=== PATIENT | female | born 1985 | race Caucasian/White ===

== ENCOUNTER 2023-12-19 23:15 | Emergency (ER) | payer OTHER, SELFPAY ==
[2023-12-19 23:15] VITALS: BMI 24.7
[2023-12-19 23:20] VITALS: BP 142/75
[2023-12-19 23:44] VITALS: BP 128/84
--- NOTE | 2023-12-19 23:59 | ED.GENMED ---
History of Present Illness
<MAE Machado - Last Filed: 12/21/23 00:48>
General
Chief Complaint: Fever
Source: patient
Exam Limitations: none
Time Seen by Provider: 12/19/23 23:36
Travel History
Have you had any contact with someone who has COVID-19?: No
Do you have any symptoms of coronavirus? Fever > 100 degrees, chills, cough, shortness of breath, sore throat, loss of taste or smell, muscle aches, or headache?: No
History of Present Illness
History of Present Illness:
This is a 38 year old female that comes in with c/o fever and abd pain. States that on Saturday she started with lower back pain and abd pain. States that on Saturday night she had a fever of 100. Saturday the fever continued and she kept taking Advil.
States that on Saturday she went to see the PCP and she told her that she was having abd pain but she was not listening. States that she tested her for COVID, Influenza an RSV. States that she was told that it most likely was viral and went home on
Advil. States that Saturday her temp was 101 and Saturday all her testing came back and it was negative. States that she went to this morning and she was told that she has a kidney infection. States that her abd pain is worse and that they again
had tested her for COVID, Influenza, strep and all was negative. States that they gave her a shot in her buttocks and gave her Bactrim. States that she has flank pain and that it feels like someone is using a knife in her Urethra. States that she
had a left over Tramadol which she took and this did not help. States that she has had fever with chills, nausea, diarrhea, headache, urinary frequency and burning. Denies any chest pain, SOB, vomiting, dizziness.
Past History
<MAE Machado - Last Filed: 12/21/23 00:48>
Past History
ED Past Medical History: Arrthythmia (tachycardia), GERD, Psychiatric (Anxiety, Depression) and Other (Endometriosis, rectal prolapse, rectocele, Gastroparesis, UTI, )
ED Past Surgical History: Appendectomy, Bowel resection (Colon resection for rectal prolapse June 2021, Colectomy) and Other (Laparoscopy, Colostomy to Ileostomy with reversal, )
Social History
Tobacco: Non-smoker
Alcohol: Occasional
Drug: None
Personal:
Living: with family
Employment: Employed (Patient is a professor at [employer])
Review of Systems
<MAE Machado - Last Filed: 12/21/23 00:48>
Review of Systems
All Other Systems: ROS reviewed and negative except as documented in HPI and ROS
Constitutional: Reports fever and chills
EENT: Reports no symptoms
Respiratory: Reports no symptoms; Denies cough or trouble breathing
Cardiac: Denies chest pain
ABD/GI: Reports abdominal pain, nausea and diarrhea; Denies vomiting
: Reports dysuria and frequency
Musculoskeletal: Reports no symptoms
Skin: Reports no symptoms
Neurological: Reports headache; Denies dizzy
Psychiatric: Reports no symptoms
Phy Exam
<MAE Machado - Last Filed: 12/21/23 00:48>
General Physical Exam
General Presentation: mild distress
General age: appears stated age
General Skin: warm, dry and flushed
General Habitus: normal
General Mental: alert
General Hydration: appears well hydrated
ENT Exam
ENT Exam: TM's normal, pharynx normal and neck supple
Eye Exam
Eye Exam: EOMI
Cardiovascular Exam
Cardiovascular Exam: regular rate/rhythm, no edema, no murmur and normal peripheral pulses
Pulmonary Exam
Pulmonary Exam: lungs clear, no respiratory distress, no rales, chest non tender, no crackles, no rhonchi, no wheezing and no cough
Gastrointestinal Exam
Gastrointestinal Exam: normal bowel sounds, soft, no organomegaly, no pulsatile mass, non distended and tender (Lower abd tenderness with palpation)
Musculoskeletal Exam
Musculoskeletal Exam: full ROM and no edema
Skin Exam
Skin Exam: normal color, warm/dry, no rash and no petechia
Psychiatric Exam
Psychiatric Exam: normal mood/affect
Course
<MAE Machado - Last Filed: 12/21/23 00:48>
Orders/Labs/Results
Orders:
Orders
12/19/23 23:55
0.9% Sodium Chloride 1000 ml [Nss] 1,000 ml IV BOLUS
Iohexol [Omnipaque] See Protocol PO NOW STA
12/19/23 23:56
Complete Blood Count/With Diff Urgent
Comprehensive Metabolic Panel Urgent
HCG, Serum Qualitative Screen Urgent
Test Result ONCE
12/19/23 23:57
Urinalysis Reflex To Culture Urgent
Date Specimen was Collected: 12/19/23
Time Specimen was Collected: 23:58
Acetaminophen 1000MG/100Ml [Ofirmev] 1,000 mg in 100 ml IV ONCE
Acetaminophen IV Indication:: ED Narcotic Naive Pt-ONCE
12/20/23 01:27
Morphine Sulfate 2 mg IV NOW STA
12/20/23 02:30
CT Abd/pel W Iv And Oral Contr Urgent
Comment: colectomy, Hist of Colostomy/Ileostomy with revers
Reason For Exam: Lower abd pain
12/20/23 02:50
Piperacillin/Tazo 3.375 Gram [Zosyn] 3.375 gram in 50 ml IV NOW
12/20/23 03:03
Morphine Sulfate 4 mg IV NOW STA
12/20/23 04:11
Morphine Sulfate 4 mg IV NOW STA
12/20/23 04:58
0.9% Sodium Chloride 500 ml [Nss] 500 ml IV BOLUS
12/20/23 05:19
Lactic Acid Stat
Blood Culture Q30M
[facility] Source: Blood/Venous
Specimen Description:
12/20/23 05:48
Blood Culture Q30M
[facility] Source: Blood/Venous
Specimen Description:
12/20/23 07:28
Morphine Sulfate 4 mg IV Q4HPRN PRN
12/20/23 08:00
Dextrose 5%/0.9%Sodchl 1000 ml [D5/0.9% Sodium Chloride] 1,000 ml Potassium Chloride [KCl] 20 meq IV 120 mls/hr
Piperacillin/Tazo 4.5 Gram [Zosyn] 4.5 gram in 100 ml IV Q6H
12/20/23 09:44
Morphine Sulfate 4 mg .ROUTE .STK-MED ONE
12/20/23 09:45
Morphine Sulfate 4 mg IV NOW STA
12/20/23 11:52
Morphine Sulfate 4 mg IV NOW STA
Abnormal Lab Results
12/20/23 12/20/23
00:06 05:19
WBC 15.1 H 10^3/uL
(4.8-10.8)
RBC 3.93 L 10^6/uL
(4.20-5.40)
Hgb 11.7 L g/dL
(12.0-16.0)
Hct 33.2 L %
(37.0-47.0)
Plt Count 447 H 10^3/uL
(130-400)
Abs Immat Gran (auto) 0.2 H 10^3/uL
(0-0.05)
Absolute Neuts (auto) 11.1 H 10^3/uL
(1.4-6.5)
Absolute Monos (auto) 1.3 H 10^3/uL
(0.1-0.6)
Immature Gran % 1.5 H %
(0-0.5)
Lymphocytes % 15.4 L %
(20.5-51.1)
Lactic Acid < 0.5 L mmol/L
(0.7-2.0)
12/20/23 00:06
12/20/23 00:06
Leukocytosis, Plt slightly elevated. HCG negative, Urine negative for infection or blood.
Vital Signs
Initial and Last Documented VS:
Initial Vital Signs
Temp Pulse Resp BP Pulse Ox
100.6 F H 109 20 142/75 100
12/19/23 23:20 12/19/23 23:20 12/19/23 23:20 12/19/23 23:20 12/19/23 23:20
Last Documented Vital Signs
Temp Pulse Resp BP Pulse Ox
98.4 F 114 14 119/77 99
12/20/23 06:12 12/20/23 11:57 12/20/23 11:57 12/20/23 11:57 12/20/23 12:00
<Aleksandra Andrews MD - Last Filed: 12/20/23 05:04>
Orders/Labs/Results
Orders:
Orders
12/19/23 23:55
0.9% Sodium Chloride 1000 ml [Nss] 1,000 ml IV BOLUS
Iohexol [Omnipaque] See Protocol PO NOW STA
12/19/23 23:56
Complete Blood Count/With Diff Urgent
Comprehensive Metabolic Panel Urgent
HCG, Serum Qualitative Screen Urgent
Test Result ONCE
12/19/23 23:57
Urinalysis Reflex To Culture Urgent
Date Specimen was Collected: 12/19/23
Time Specimen was Collected: 23:58
Acetaminophen 1000MG/100Ml [Ofirmev] 1,000 mg in 100 ml IV ONCE
Acetaminophen IV Indication:: ED Narcotic Naive Pt-ONCE
12/20/23 01:27
Morphine Sulfate 2 mg IV NOW STA
12/20/23 02:30
CT Abd/pel W Iv And Oral Contr Urgent
Comment: colectomy, Hist of Colostomy/Ileostomy with revers
Reason For Exam: Lower abd pain
12/20/23 02:50
Piperacillin/Tazo 3.375 Gram [Zosyn] 3.375 gram in 50 ml IV NOW
12/20/23 03:03
Morphine Sulfate 4 mg IV NOW STA
12/20/23 04:11
Morphine Sulfate 4 mg IV NOW STA
12/20/23 04:58
0.9% Sodium Chloride 500 ml [Nss] 500 ml IV BOLUS
12/20/23 05:19
Lactic Acid Stat
Blood Culture Q30M
[facility] Source: Blood/Venous
Specimen Description:
12/20/23 05:48
Blood Culture Q30M
[facility] Source: Blood/Venous
Specimen Description:
12/20/23 07:28
Morphine Sulfate 4 mg IV Q4HPRN PRN
12/20/23 08:00
Dextrose 5%/0.9%Sodchl 1000 ml [D5/0.9% Sodium Chloride] 1,000 ml Potassium Chloride [KCl] 20 meq IV 120 mls/hr
Piperacillin/Tazo 4.5 Gram [Zosyn] 4.5 gram in 100 ml IV Q6H
12/20/23 09:44
Morphine Sulfate 4 mg .ROUTE .STK-MED ONE
12/20/23 09:45
Morphine Sulfate 4 mg IV NOW STA
12/20/23 11:52
Morphine Sulfate 4 mg IV NOW STA
Abnormal Lab Results
12/20/23 12/20/23
00:06 05:19
WBC 15.1 H 10^3/uL
(4.8-10.8)
RBC 3.93 L 10^6/uL
(4.20-5.40)
Hgb 11.7 L g/dL
(12.0-16.0)
Hct 33.2 L %
(37.0-47.0)
Plt Count 447 H 10^3/uL
(130-400)
Abs Immat Gran (auto) 0.2 H 10^3/uL
(0-0.05)
Absolute Neuts (auto) 11.1 H 10^3/uL
(1.4-6.5)
Absolute Monos (auto) 1.3 H 10^3/uL
(0.1-0.6)
Immature Gran % 1.5 H %
(0-0.5)
Lymphocytes % 15.4 L %
(20.5-51.1)
Lactic Acid < 0.5 L mmol/L
(0.7-2.0)
12/20/23 00:06
12/20/23 00:06
Vital Signs
Initial and Last Documented VS:
Initial Vital Signs
Temp Pulse Resp BP Pulse Ox
100.6 F H 109 20 142/75 100
12/19/23 23:20 12/19/23 23:20 12/19/23 23:20 12/19/23 23:20 12/19/23 23:20
Last Documented Vital Signs
Temp Pulse Resp BP Pulse Ox
98.4 F 114 14 119/77 99
12/20/23 06:12 12/20/23 11:57 12/20/23 11:57 12/20/23 11:57 12/20/23 12:00
<MAE Machado - Last Filed: 12/21/23 00:48>
MDM/Problems Addressed
Differential Diagnosis Includes:
UTI, Renal calculus, Pyelonephritis
MDM/Problems Addressed:
This is a 38 year old female that comes in with c/o abd pain and fever. States that this started on Saturday night. Patient as told today that she has a kidney infection and given IM injection and placed on Bactrim. States that her pain is worse
tonight.
Will get labs CT abd/pelvis, IV fluids and medicate for pain.
Back into see patient. Explained that the CT shows that there may be a leak at her anastomosis or an abscess. Patient will need tranfer to [facility] where her surgery was done in August 2023. Called placed to Dr. Costa and awaiting call back.
Chronic conditions affecting care: Previous abdomnial surgery
Acute Exacerbation and/or Progression of Chronic Illness: Previous abdomnial surgery
<MAE Machado - Last Filed: 12/21/23 00:48>
*Radiology
Radiology exam reviewed: radiology read reviewed (CT night hawk- Interval right lower quadrant ostomy reversal. Surgical anastomosis noted in the lower pelvis at the level of the rectum. The left margin of the surgical anastomosis there is a likely
extraluminal fluid collection measuring 2X 3.5cm with several small foci of gas. This could reflect), all reviewed NAD by ED Provider (CT cont- reflect perianastomotic leak and/or abscess formation. Intraluminal contrast is noted at the level of the
descending colon but not within the distal sigmoid colon and rectum or anus. Consider repeat CT to allow further transit time of contast and better delineation of this region. Consider ) and other (CT cont- Consider surgical consultation. No
appendicitis. No evidence of small bowel obstruction. No evidence of hydroureteronephrosis or obstructing stones. No AAA)
*Pulse Oximetry
Patient hypoxic: no
*EKG
Interpreted by ED Provider?: NA
Rate: EKG- N/A
*Critical Care Note
Total Time (30-74mins, 75-104mins- exclusive of procedures): Not Applicable
ED Attending Note
<MAE Machado - Last Filed: 12/21/23 00:48>
-
Portions of this chart may have been created with voice recognition software.� Occasional wrong word or��sound alike� substitutions may have occurred due to the inherent limitations of voice recognition software.
<Aleksandra Andrews MD - Last Filed: 12/20/23 05:04>
ED Attending Note
Patient seen and examined by attending physician: Yes
I performed the substantive portion of visit, reviewed & personally made and approve the management plan that is documented in note by myself or ROMAN.: Yes
ED Attending Note:
89am Case d/w Dr Ronda Kaiser and regulatory compliance coordinator, away of hx,p hys, prior surgery, ct report, labs, etc. Agrees with abx, pain meds, and plan to transfer...accepts pt on transfer. At this time, no bed available there but coordinator expects
bed this AM and we will await their call for availability.
38 yr old female with c/o fever since Saturday, dx'd with UTI and on bactrim, presentes with pain in abd...on exam,pt overall well appearing, awake, alert, pleasant. Abd is soft, mod rlq ttp, no r/g. Will add lactic and blood cultures to w/u,close
observation while awaiting tx.
Discharge Plan
Departure
Patient Disposition: Acute Care Hospital
Date of Disposition: 12/20/23
Time of Disposition: 03:29
Patient with high blood pressure during this ER visit?: No
Condition: Good
Covid-19: Not Applicable
Discharge Problem:
Anastomotic leak of intestine, Anastomotic leak vs Abscess
Prescriptions:
No Action
trazodone 50 MG tablet
100 mg PO HS
sertraline 100 MG tablet
200 mg PO HS
acetaminophen 325 MG tablet
650 mg PO Q4HPRN PRN (Reason: mild pain) 0RF
clonazepam 0.5 MG tablet
0.5 mg PO HS
plecanatide [Trulance] 3 MG tablet
3 mg PO DAILYPRN PRN (Reason: constipation)
Patient Comments:
takes every other day with dulcolax for bowel regimen
docusate sodium 100 MG capsule
200 mg PO HS
baclofen 10 MG tablet
10 mg PO TID PRN (Reason: spasm)
bupropion HCl 300 MG tablet extended release 24 hr
300 mg PO DAILY
oxycodone 5 MG tablet
5 mg PO Q4HPRN PRN (Reason: moderate pain) Qty: 15 0RF
ciprofloxacin HCl [Cipro] 500 mg tablet
500 mg PO BID Qty: 14 0RF
phenazopyridine [Pyridium] 200 mg tablet
200 mg PO TID PRN (Reason: pain) Qty: 10 0RF
gabapentin 100 mg capsule
100 mg PO TID PRN (Reason: pain) Qty: 14 0RF
pantoprazole 40 MG tablet,delayed release (DR/EC)
40 mg PO DAILY
multivitamin 1 EACH tablet
1 ea PO DAILY
Referrals:
Ingrid Long MD [Family Provider] -
Hospital Transfer
Other hospital: [facility]
I certify that the patient requires transfer: Yes
Discussed case with accepting physician: Dr. Ronda Kaiser
Reason for transfer: higher level of care, specialties available and continuity of care PCP
Interventions
Interventions:
*Risk Screen - Suicide Last Done: 12/20/23 07:30
*General Assessment Last Done: 12/20/23 07:30
*Neglect/Abuse Screening Last Done: 12/20/23 07:30
ED- Fall Risk Assessment Last Done: 12/20/23 07:30
*ED COVID-19 Vaccine History Last Done: 12/20/23 07:30
*Nursing Disposition Last Done: 12/20/23 12:13
ED- Neurological Assessment Last Done: 12/20/23 00:10
ED-Skin Assessment Last Done: 12/20/23 00:10
Discharge Date and Time
Discharge Date/Time: 12/20/23 12:16
[2023-12-20] VITALS (11 sets, daily range): BP systolic 111–122; BP diastolic 72–82
[2023-12-20] MEDS: NSS 1000 IV (00:10)
[2023-12-20] MEDS: OMNIPAQUE 50 ML PO (00:17)
[2023-12-20] MEDS: OFIRMEV 100 IV (00:24)
[2023-12-20 00:38] LABS: % Basophils 0.5 % (0-2); % Eosinophils 1.1 % (0-6); % Immature Granulocytes 1.5 % (0-0.5); % Lymphocytes 15.4 % (20.5-51.1); % Monocytes 8.3 % (1.7-9.3); % Neutrophils 73.2 % (42.2-75.2); Absolute Basophils 0.1 10^3/uL (0-0.2); Absolute Eosinophils 0.2 10^3/uL (0-0.7); Absolute Immature Granulocytes 0.2 10^3/uL (0-0.05); Absolute Lymphocytes 2.3 10^3/uL (1.2-3.4); Absolute Monocytes 1.3 10^3/uL (0.1-0.6); Absolute Neutrophils 11.1 10^3/uL (1.4-6.5); Hematocrit 33.2 % (37.0-47.0); Hemoglobin 11.7 g/dL (12.0-16.0); Mean Corp Hgb Conc. 35.2 g/dL (33.0-37.0); Mean Corpuscular Hgb 29.8 pg (27.0-31.0); Mean Corpuscular Volume 84.5 fL (81.0-99.0); Mean Platelet Volume 8.5 fL (7.4-10.4); Nucleated Red Blood Cells % 0 %; Platelet Count 447 10^3/uL (130-400); Red Blood Cell Count 3.93 10^6/uL (4.20-5.40); Red Cell Dist. Width 11.7 % (11.5-14.5); Urine Albumin Negative (Neg - Trace); Urine Bilirubin Negative (Negative); Urine Character Clear (Clear); Urine Color Yellow; Urine Glucose Negative (Negative); Urine Ketone Negative (Negative); Urine Leukocyte Negative (Negative); Urine Nitrite Negative (Negative); Urine Occult Blood Negative (Negative); Urine Urobilinogen Negative (Neg - 1+); White Blood Cell Count 15.1 10^3/uL (4.8-10.8)
[2023-12-20 00:44] LABS: HCG, Serum Qualitative Screen Negative
[2023-12-20 01:07] LABS: ALT (SGPT) 16 U/L (0-35); AST (SGOT) 20 U/L (14-36); Albumin 3.7 g/dl (3.5-5.0); Alkaline Phosphatase 96 U/L (38-126); Blood Urea Nitrogen 8 mg/dl (7-17); Calcium 8.7 mg/dl (8.4-10.2); Carbon Dioxide 26 mmol/L (22-30); Chloride 102 mmol/L (98-107); Estimated Creatinine Clearance 100 ml/min; Glucose 86 mg/dl (70-99); Potassium 4.2 mmol/L (3.5-5.1); Sodium 136 mmol/L (135-145); Total Bilirubin 0.3 mg/dl (0.2-1.3); Total Protein 6.8 g/dl (6.3-8.2); eGFR > 60.00
[2023-12-20] MEDS: MORPHINE SULFATE 2 MG IV (01:30)
[2023-12-20] MEDS: MORPHINE SULFATE 4 MG IV ×5 (03:11→11:53)
[2023-12-20] MEDS: ZOSYN 50 IV (03:18)
[2023-12-20] MEDS: NSS 500 IV (05:26)
[2023-12-20 06:05] LABS: Lactic Acid < 0.5 mmol/L (0.7-2.0)
--- NOTE | 2023-12-20 07:34 | ED.ADDNOTE ---
ED Addendum
ED Addendum
ED Addendum Note:
Pt re-evaluated. She is having increased pain as her last dose of morphine is wearing off. No nausea or vomiting.
Mild tachycardia @ 100-110, normal bp
Facial flushing
Abd: tender rlq.
IVF D5NS at 1.5 maintenance
Zosyn ordered q6
Morphine 4mg PRN q 4
Fellow from [facility] called to check pt status. They are hoping for a bed later today.
[2023-12-20] MEDS: ZOSYN 100 IV (08:23)
[2023-12-20] MEDS: KCL 1010 MEQ IV (08:23)
== END 2023-12-20 12:16 | disposition short-term general hospital (02) ==
LOC: EMR 23:15
PROVIDERS: Clinical Nurse Specialist Family Health; EMERGENCY PHYSICIAN Emergency Medicine; FAMILY PHYSICIAN Family Medicine
DX: R50.9 Fever, unspecified (principal); R10.9 Unspecified abdominal pain; K91.89 Other postprocedural complications and disorders of digestive system
CPT/HCPCS: 99285; 96365; 96374; 96375; 96361 ×2; 96376; 74177; 80053; 81003; 83605; 84703; 85025; 87040; Q9967

== ENCOUNTER 2024-09-04 12:43 | Emergency (ER) | payer BC, SELFPAY ==
[2024-09-04 12:51] VITALS: BP 139/96
--- NOTE | 2024-09-04 14:05 | ED.GENMED ---
History of Present Illness
General
Chief Complaint: Abdominal Pain
Source: patient
Time Seen by Provider: 09/04/24 13:55
History of Present Illness
History of Present Illness:
38-year-old female presents with worsening lower abdominal pain over the past 7 to 8 days. She has complicated abdominal surgical history including rectal prolapse surgery and subsequently colectomy with ileostomy then subsequent reversal of the
ileostomy. She ended up with anastomosis leak and had sepsis earlier this year. This feels similar to when she had sepsis. She denies fevers but notes nausea. No vomiting. She has been moving her bowels. The pain is constant sharp in nature to
the lower abdomen. Last menstrual cycle was 6 months ago. She is on control that prevents her from getting her menstrual cycle. She has a history of endometriosis. No flank pain. No urinary symptoms. No other complaints
Past History
Past History
ED Past Medical History: Arrthythmia (tachycardia), GERD, Psychiatric (Anxiety, Depression) and Other (Endometriosis, rectal prolapse, rectocele, Gastroparesis, UTI, )
ED Past Surgical History: Appendectomy, Bowel resection (Colon resection for rectal prolapse June 2021, Colectomy) and Other (Laparoscopy, Colostomy to Ileostomy with reversal, )
Social History
Tobacco: Non-smoker
Alcohol: Occasional
Drug: None
Personal:
Living: with family
Employment: Employed (Patient is a professor at [employer])
Phy Exam
Physical Exam
Physical Exam:
General: Well-appearing female no acute respiratory distress
HEENT: Normocephalic atraumatic
Heart: Regular rate and rhythm
Lungs: Clear no wheeze
Abdomen is soft tender to the lower abdomen bilaterally no guarding or rebound normal bowel
Extremities: No cyanosis or edema
Skin: no rash
Course
Orders/Labs/Results
Orders:
Orders
09/04/24 14:04
CT Abd/pel W Iv And Oral Contr Urgent
Comment:
Reason For Exam: lower abdominal pain, history of colectomy
Iohexol [Omnipaque] See Protocol PO NOW STA
09/04/24 14:05
Test Result ONCE
09/04/24 14:29
Complete Blood Count/With Diff Urgent
Comprehensive Metabolic Panel Urgent
HCG, Serum Qualitative Screen Urgent
Lipase Urgent
Urinalysis Reflex To Culture Urgent
Date Specimen was Collected: 09/04/24
Time Specimen was Collected: 14:28
09/04/24 15:23
Ketorolac [Toradol] 15 mg IV NOW STA
Abnormal Lab Results
09/04/24
14:29
Lymphocytes % 17.0 L %
(20.5-51.1)
09/04/24 14:29
09/04/24 14:29
Vital Signs
Initial and Last Documented VS:
Initial Vital Signs
Temp Pulse Resp BP Pulse Ox
98.6 F 106 16 139/96 100
09/04/24 12:51 09/04/24 12:51 09/04/24 12:51 09/04/24 12:51 09/04/24 12:51
Last Documented Vital Signs
Temp Pulse Resp BP Pulse Ox
98.6 F 106 16 120/80 97
09/04/24 12:51 09/04/24 12:51 09/04/24 12:51 09/04/24 18:26 09/04/24 18:25
MDM/Problems Addressed
Differential Diagnosis Includes:
Lower abdominal pain. Surgical history as above. Concern for recurrent issue with her prior anastomosis. Will check CT scan with oral and IV contrast. Labs pending urinalysis and test pending.
*Critical Care Note
Total Time (30-74mins, 75-104mins- exclusive of procedures): Not Applicable
Update Note
Update Note:
Case signed out to Lynette Arriola NP
ED Attending Note
-
Portions of this chart may have been created with voice recognition software.� Occasional wrong word or��sound alike� substitutions may have occurred due to the inherent limitations of voice recognition software.
Discharge Plan
Departure
Patient Disposition: Home (Routine Discharge)
Date of Disposition: 09/04/24
Time of Disposition: 18:20
Patient with high blood pressure during this ER visit?: No
Condition: Good
Discharge Problem:
Abdominal pain
Instructions: Abdominal Pain
Prescriptions:
No Action
trazodone 50 MG tablet
100 mg PO HS
sertraline 100 MG tablet
200 mg PO HS
acetaminophen 325 MG tablet
650 mg PO Q4HPRN PRN (Reason: mild pain) 0RF
clonazepam 0.5 MG tablet
0.5 mg PO HS
plecanatide [Trulance] 3 MG tablet
3 mg PO DAILYPRN PRN (Reason: constipation)
Patient Comments:
takes every other day with dulcolax for bowel regimen
docusate sodium 100 MG capsule
200 mg PO HS
baclofen 10 MG tablet
10 mg PO TID PRN (Reason: spasm)
bupropion HCl 300 MG tablet extended release 24 hr
300 mg PO DAILY
oxycodone 5 MG tablet
5 mg PO Q4HPRN PRN (Reason: moderate pain) Qty: 15 0RF
ciprofloxacin HCl [Cipro] 500 mg tablet
500 mg PO BID Qty: 14 0RF
phenazopyridine [Pyridium] 200 mg tablet
200 mg PO TID PRN (Reason: pain) Qty: 10 0RF
gabapentin 100 mg capsule
100 mg PO TID PRN (Reason: pain) Qty: 14 0RF
pantoprazole 40 MG tablet,delayed release (DR/EC)
40 mg PO DAILY
multivitamin 1 EACH tablet
1 ea PO DAILY
Referrals:
Uriel Leonard MD [Family Provider] - As needed
Activity Restrictions/Additional Instructions:
As we discussed, your CAT scan shows nothing worrisome. Your workup here today shows nothing worrisome.
Interventions
Interventions:
*Risk Screen - Suicide Last Done: 09/04/24 12:53
*General Assessment Last Done: 09/04/24 18:51
*Neglect/Abuse Screening Last Done: 09/04/24 12:53
*Nursing Disposition Last Done: 09/04/24 18:51
QP-[id number] Assessment Last Done: 09/04/24 14:54
Discharge Date and Time
Discharge Date/Time: 09/04/24 18:52
Print Language: DIVEHI
[2024-09-04] MEDS: OMNIPAQUE 50 ML PO (14:22)
[2024-09-04 14:31] VITALS: BP 125/86
[2024-09-04 14:52] LABS: % Basophils 0.7 % (0-2); % Eosinophils 0.8 % (0-6); % Immature Granulocytes 0.4 % (0-0.5); % Monocytes 6.5 % (1.7-9.3); % Neutrophils 74.6 % (42.2-75.2); Absolute Basophils 0.1 10^3/uL (0-0.2); Absolute Eosinophils 0.1 10^3/uL (0-0.7); Absolute Lymphocytes 1.3 10^3/uL (1.2-3.4); Absolute Monocytes 0.5 10^3/uL (0.1-0.6); Absolute Neutrophils 5.5 10^3/uL (1.4-6.5); Hematocrit 37.9 % (37.0-47.0); Hemoglobin 12.9 g/dL (12.0-16.0); Mean Corpuscular Hgb 27.6 pg (27.0-31.0); Mean Platelet Volume 8.9 fL (7.4-10.4); Nucleated Red Blood Cells % 0 %; Platelet Count 291 10^3/uL (130-400); Red Blood Cell Count 4.68 10^6/uL (4.20-5.40); Red Cell Dist. Width 13.1 % (11.5-14.5); White Blood Cell Count 7.3 10^3/uL (4.8-10.8)
[2024-09-04 14:59] LABS: HCG, Serum Qualitative Screen Negative
[2024-09-04 15:00] VITALS: BP 134/93
[2024-09-04 15:02] LABS: ALT (SGPT) 24 U/L (0-35); AST (SGOT) 27 U/L (14-36); Albumin 4.6 g/dl (3.5-5.0); Alkaline Phosphatase 48 U/L (38-126); Blood Urea Nitrogen 11 mg/dl (7-17); Calcium 9.5 mg/dl (8.4-10.2); Carbon Dioxide 25 mmol/L (22-30); Chloride 102 mmol/L (98-107); Glucose 96 mg/dl (70-99); Lipase 78 U/L (23-300); Potassium 4.3 mmol/L (3.5-5.1); Sodium 138 mmol/L (135-145); Total Bilirubin 0.3 mg/dl (0.2-1.3); Total Protein 7.7 g/dl (6.3-8.2); eGFR > 60.00
[2024-09-04 15:09] LABS: Urine Albumin Negative (Neg - Trace); Urine Bilirubin Negative (Negative); Urine Character Clear (Clear); Urine Color Yellow; Urine Glucose Negative (Negative); Urine Ketone Negative (Negative); Urine Leukocyte Negative (Negative); Urine Nitrite Negative (Negative); Urine Occult Blood Negative (Negative); Urine Urobilinogen Negative (Neg - 1+)
[2024-09-04] MEDS: TORADOL 15 MG IV (15:30)
[2024-09-04 16:00] VITALS: BP 137/87
[2024-09-04 18:26] VITALS: BP 120/80
== END 2024-09-04 18:52 | disposition home or self-care (01) ==
LOC: EMR 12:43
PROVIDERS: Physician Assistant; EMERGENCY PHYSICIAN Emergency Medicine; FAMILY PHYSICIAN Internal Medicine
DX: R10.30 Lower abdominal pain, unspecified (principal); K21.9 Gastro-esophageal reflux disease without esophagitis; Z90.49 Acquired absence of other specified parts of digestive tract; Z87.19 Personal history of other diseases of the digestive system
CPT/HCPCS: 96374; 99284; 74177; 80053; 81003; 83690; 84703; 85025; Q9967

== ENCOUNTER → 2024-09-29 13:19 | Outpatient (REF) | payer BC, SELFPAY | LOC: HWRAD 13:19 | PROVIDERS: ATTENDING PHYSICIAN Obstetrics & Gynecology; FAMILY PHYSICIAN Internal Medicine | DX: R10.2 Pelvic and perineal pain (principal); N80.9 Endometriosis, unspecified | CPT/HCPCS: 76830; 76856 ==

== ENCOUNTER 2024-12-08 18:12 | Emergency (ER) | payer BC, SELFPAY ==
[2024-12-08 18:14] VITALS: BP 141/95
[2024-12-08 18:42] LABS: % Basophils 1.4 % (0-2); % Eosinophils 3.3 % (0-6); % Immature Granulocytes 0.3 % (0-0.5); % Monocytes 10.5 % (1.7-9.3); % Neutrophils 50.5 % (42.2-75.2); Absolute Basophils 0.1 10^3/uL (0-0.2); Absolute Eosinophils 0.2 10^3/uL (0-0.7); Absolute Monocytes 0.6 10^3/uL (0.1-0.6); Absolute Neutrophils 2.9 10^3/uL (1.4-6.5); Hematocrit 40.7 % (37.0-47.0); Hemoglobin 13.3 g/dL (12.0-16.0); Mean Corp Hgb Conc. 32.7 g/dL (33.0-37.0); Mean Corpuscular Hgb 27.6 pg (27.0-31.0); Mean Corpuscular Volume 84.4 fL (81.0-99.0); Mean Platelet Volume 8.9 fL (7.4-10.4); Nucleated Red Blood Cells % 0 %; Platelet Count 323 10^3/uL (130-400); Red Blood Cell Count 4.82 10^6/uL (4.20-5.40); Red Cell Dist. Width 13.1 % (11.5-14.5); White Blood Cell Count 5.8 10^3/uL (4.8-10.8)
[2024-12-08 18:51] LABS: HCG, Serum Qualitative Screen Negative
[2024-12-08 18:55] LABS: ALT (SGPT) 20 U/L (0-35); AST (SGOT) 26 U/L (14-36); Albumin 4.8 g/dl (3.5-5.0); Alkaline Phosphatase 43 U/L (38-126); Blood Urea Nitrogen 19 mg/dl (7-17); Calcium 9.5 mg/dl (8.4-10.2); Carbon Dioxide 26 mmol/L (22-30); Chloride 100 mmol/L (98-107); Glucose 90 mg/dl (70-99); Potassium 4.6 mmol/L (3.5-5.1); Sodium 135 mmol/L (135-145); Total Bilirubin 0.5 mg/dl (0.2-1.3); Total Protein 7.4 g/dl (6.3-8.2); eGFR > 60.00
[2024-12-08 18:56] LABS: Lipase 110 U/L (23-300)
--- NOTE | 2024-12-08 19:51 | ED.GENMED ---
History of Present Illness
General
Chief Complaint: Abdominal Pain
Source: patient
Exam Limitations: none
Time Seen by Provider: 12/08/24 19:26
Nursing documentation reviewed up to this point in time: agreed with
History of Present Illness
History of Present Illness:
Patient with history of significant recent surgical history, including colostomy bag and subsequent reversal, presents to ED secondary to worsening abdominal pain over the past 3 days. Denies vomiting or diarrhea. Denies fever or chills. Denies
trauma. Denies difficulty urination. Abdominal pain discussed the sharp, nonradiating, without any alleviating or exacerbating answers. Denies recent change in medications or diet.
Past History
Past History
ED Past Medical History: Arrthythmia (tachycardia), GERD, Psychiatric (Anxiety, Depression) and Other (Endometriosis, rectal prolapse, rectocele, Gastroparesis, UTI, )
ED Past Surgical History: Appendectomy, Bowel resection (Colon resection for rectal prolapse June 2021, Colectomy) and Other (Laparoscopy, Colostomy to Ileostomy with reversal, )
Social History
Tobacco: Non-smoker
Alcohol: Occasional
Drug: None
Personal:
Living: with family
Employment: Employed (Patient is a professor at [employer])
Review of Systems
Review of Systems
Allergies reviewed?: Yes
All Other Systems: ROS reviewed and negative except as documented in HPI and ROS
Constitutional: Reports no symptoms; Denies fever
ABD/GI: Reports abdominal pain; Denies vomiting or diarrhea
: Reports no symptoms
Musculoskeletal: Reports no symptoms
Skin: Reports no symptoms
Neurological: Reports no symptoms
Phy Exam
Physical Exam
Physical Exam:
Physical Exam
General: mild painful distress, not acutely ill. afebrile.
Head: nc/at. eomi
Neck: supple. no meningeal signs.
Heart: s1/s2 regular rate and rhythm, no murmur. equal radial pulses.
Lungs: no acute respiratory distress. clear bilaterally
Abdomen: normal bowel sounds. mild epigastric/RUQ tenderness to palpation
Neuro: alert and oriented. no focal neurological deficits
Skin: no rash
Psychiatric: well kept. interactive and cooperative
Extremities: no edema. no calf tenderness.
Course
Orders/Labs/Results
Orders:
Orders
12/08/24 18:18
Test Result ONCE
12/08/24 18:20
Complete Blood Count/With Diff Urgent
Comprehensive Metabolic Panel Urgent
HCG, Serum Qualitative Screen Urgent
Lipase Urgent
12/08/24 19:47
Test Result ONCE
CR Obstruct Series W/pa Chest Urgent
Comment:
Reason For Exam: abd pain
US Abdomen Complete/Upper Urgent
Comment:
Reason For Exam: RUQ/epigastric pain
12/08/24 19:48
Add On- LAB Urgent
Tests Added?: lipase
12/08/24 19:56
Morphine Sulfate 2 mg IV NOW STA
Pantoprazole [Protonix IV] 40 mg IV NOW STA
12/08/24 22:17
CT Abd/pelvis W Iv Cont Urgent
Comment:
Reason For Exam: Lower abdominal pain
Abnormal Lab Results
12/08/24
18:20
MCHC 32.7 L g/dL
(33.0-37.0)
Monocytes % 10.5 H %
(1.7-9.3)
BUN 19 H mg/dl
(7-17)
12/08/24 19:47
12/08/24 19:47
Vital Signs
Initial and Last Documented VS:
Initial Vital Signs
Temp Pulse Resp BP Pulse Ox
99.5 F 112 16 141/95 99
12/08/24 18:14 12/08/24 18:14 12/08/24 18:14 12/08/24 18:14 12/08/24 18:14
Last Documented Vital Signs
Temp Pulse Resp BP Pulse Ox
99.5 F 77 13 141/95 97
12/08/24 18:14 12/08/24 23:45 12/08/24 23:45 12/08/24 18:14 12/08/24 23:45
MDM/Problems Addressed
MDM/Problems Addressed:
Patient with an unremarkable workup in ED, including blood work and CT abdomen pelvis, as well as ultrasound and x-ray. Patient reports improvement in symptoms after treatment. Patient otherwise remains afebrile and hemodynamically stable.
Patient will be given copy of the blood work as well as imaging studies on a disk, with recommendation to follow-up with her GI physician for reevaluation, including potential endoscopy/colonoscopy. Patient will be discharged home in stable
condition, to the care of her family
*Critical Care Note
Total Time (30-74mins, 75-104mins- exclusive of procedures): Not Applicable
ED Attending Note
-
Portions of this chart may have been created with voice recognition software.� Occasional wrong word or��sound alike� substitutions may have occurred due to the inherent limitations of voice recognition software.
Discharge Plan
Departure
Patient Disposition: Home (Routine Discharge)
Date of Disposition: 12/08/24
Time of Disposition: 23:17
Patient with high blood pressure during this ER visit?: Yes
Condition: Good
Discharge Problem:
Abdominal pain
Instructions: Abdominal Pain
Prescriptions:
No Action
trazodone 50 MG tablet
100 mg PO HS
sertraline 100 MG tablet
200 mg PO HS
acetaminophen 325 MG tablet
650 mg PO Q4HPRN PRN (Reason: mild pain) 0RF
clonazepam 0.5 MG tablet
0.5 mg PO HS
plecanatide [Trulance] 3 MG tablet
3 mg PO DAILYPRN PRN (Reason: constipation)
Patient Comments:
takes every other day with dulcolax for bowel regimen
docusate sodium 100 MG capsule
200 mg PO HS
baclofen 10 MG tablet
10 mg PO TID PRN (Reason: spasm)
bupropion HCl 300 MG tablet extended release 24 hr
300 mg PO DAILY
oxycodone 5 MG tablet
5 mg PO Q4HPRN PRN (Reason: moderate pain) Qty: 15 0RF
ciprofloxacin HCl [Cipro] 500 mg tablet
500 mg PO BID Qty: 14 0RF
phenazopyridine [Pyridium] 200 mg tablet
200 mg PO TID PRN (Reason: pain) Qty: 10 0RF
gabapentin 100 mg capsule
100 mg PO TID PRN (Reason: pain) Qty: 14 0RF
pantoprazole 40 MG tablet,delayed release (DR/EC)
40 mg PO DAILY
multivitamin 1 EACH tablet
1 ea PO DAILY
Referrals:
Uriel Leonard MD [Family Provider] -
Activity Restrictions/Additional Instructions:
As discussed, please follow-up with your primary care physician and/or GI physician for further evaluation and treatment.
Interventions
Interventions:
*Risk Screen - Suicide Last Done: 12/08/24 18:14
*General Assessment Last Done: 12/08/24 18:14
*Neglect/Abuse Screening Last Done: 12/08/24 18:14
ED- Fall Risk Assessment Last Done: 12/08/24 23:47
*Nursing Disposition Last Done: 12/08/24 23:47
[facility] Assessment Last Done: 12/08/24 20:27
Discharge Date and Time
Discharge Date/Time: 12/08/24 23:58
Print Language: TAMAZIGHT
[2024-12-08] MEDS: MORPHINE SULFATE 2 MG IV (20:09)
[2024-12-08] MEDS: PROTONIX IV 40 MG IV (20:09)
== END 2024-12-08 23:58 | disposition home or self-care (01) ==
LOC: EMR 18:12
PROVIDERS: Student in an Organized Health Care Education/Training Program; EMERGENCY PHYSICIAN Emergency Medicine; FAMILY PHYSICIAN Internal Medicine
DX: R10.9 Unspecified abdominal pain (principal); K21.9 Gastro-esophageal reflux disease without esophagitis; Z90.49 Acquired absence of other specified parts of digestive tract; Z87.19 Personal history of other diseases of the digestive system
CPT/HCPCS: 96374; 96375; 99284; 74022; 74177; 76700; 80053; 83690; 84703; 85025; Q9967

== ENCOUNTER 2025-01-07 06:17 | Day surgery (SDC) | payer BC, SELFPAY | END 2025-01-07 10:23 | disposition home or self-care (01) | LOC: GI 06:17 | PROVIDERS: ATTENDING PHYSICIAN Internal Medicine | DX: K29.70 Gastritis, unspecified, without bleeding (principal); K31.7 Polyp of stomach and duodenum; K31.9 Disease of stomach and duodenum, unspecified | CPT/HCPCS: 43239; 88305; 88342 ==

== ENCOUNTER 2025-03-15 09:52 | Emergency (ER) | payer BC, SELFPAY ==
[2025-03-15 10:08] VITALS: BP 143/96
[2025-03-15 10:25] VITALS: BMI 25.8
--- NOTE | 2025-03-15 10:26 | EDRN ---
Dyana Barr KETTLE OPERATOR in room w/ pt at this time.
--- NOTE | 2025-03-15 10:33 | ED.GENMED ---
History of Present Illness
<MAE Sinclair - Last Filed: 03/16/25 07:04>
General
Chief Complaint: Abdominal Pain
Source: patient
Exam Limitations: none
Time Seen by Provider: 03/15/25 10:08
Nursing documentation reviewed up to this point in time: agreed with
History of Present Illness
History of Present Illness:
Patient is a 39-year-old female with past medical history of endometriosis, sigmoid resection colonic inertia/gastroparesis with complete colon resection with ileostomy status post reversal presents today for evaluation. She reports for the past 1
week she has had lower abdominal discomfort and recently has had difficulty emptying her bladder. She saw her pcp lst week and neg UTI.
She only was able to pee a couple drops this morning. She thought initially this was endometriosis pain but this does feel different. She has been taking Tylenol Celebrex and tramadol without relief.
Past History
<MAE Sinclair - Last Filed: 03/16/25 07:04>
Past History
ED Past Medical History: Arrthythmia (tachycardia), GERD, Psychiatric (Anxiety, Depression) and Other (Endometriosis, rectal prolapse, rectocele, Gastroparesis, UTI, )
ED Past Surgical History: Appendectomy, Bowel resection (Colon resection for rectal prolapse June 2021, Colectomy) and Other (Laparoscopy, Colostomy to Ileostomy with reversal, )
Social History
Tobacco: Non-smoker
Alcohol: Occasional
Drug: None
Personal:
Living: with family
Employment: Employed (Patient is a professor at [employer])
Review of Systems
<MAE Sinclair - Last Filed: 03/16/25 07:04>
Review of Systems
Allergies reviewed?: Yes
All Other Systems: ROS reviewed and negative except as documented in HPI and ROS
Constitutional: Reports no symptoms; Denies fever, fatigue or chills
Respiratory: Reports no symptoms
Cardiac: Reports no symptoms
ABD/GI: Reports abdominal pain; Denies nausea or vomiting
: Reports other (difficulty urinating )
Musculoskeletal: Reports no symptoms
Skin: Reports no symptoms
Neurological: Reports no symptoms
Psychiatric: Reports no symptoms
Phy Exam
<MAE Sinclair - Last Filed: 03/16/25 07:04>
General Physical Exam
General Presentation: no apparent distress
General age: appears stated age
General Skin: warm and dry
General Habitus: normal
General Mental: alert
General Hydration: appears well hydrated
Gastrointestinal Exam
Gastrointestinal Exam: soft and other (mild lower abd tenderness no guarding )
Neurological Exam
Neurological Exam: alert and oriented x3
Musculoskeletal Exam
Musculoskeletal Exam: full ROM
Skin Exam
Skin Exam: normal color and warm/dry
Psychiatric Exam
Psychiatric Exam: normal mood/affect
<Jenna Hendrickson PA-C - Last Filed: 03/16/25 02:59>
Physical Exam
Physical Exam:
.
Course
<MAE Sinclair - Last Filed: 03/16/25 07:04>
Orders/Labs/Results
Orders:
Orders
03/15/25 10:35
Bladder Scan- Treatment ONCE
IV Insert/Care/Rem.- Treatment PRN
03/15/25 10:56
UA Reflex to Culture [Urinalysis Reflex To Culture] Urgent
Date Specimen was Collected: 03/15/25
Time Specimen was Collected: 10:55
03/15/25 11:00
IV Insert/Care/Rem.- Treatment PRN
0.9% Sodium Chloride 1000 ml [Nss] 1,000 ml IV BOLUS
HYDROmorphone [Dilaudid] 0.5 mg IV NOW STA
Morphine Sulfate 4 mg IV NOW STA
US Renal With Bladder Urgent
Comment:
Reason For Exam: lower abd pain , urinary retention
03/15/25 11:04
Complete Blood Count/With Diff Urgent
Comprehensive Metabolic Panel Urgent
HCG, Serum Qualitative Screen Urgent
Comment: ADD ON
Lipase Urgent
03/15/25 14:06
CT Abd/pel Without Iv Or Oral Urgent
Comment:
Reason For Exam: urinary retention
Wagner Placement- Treatment ONCE
Reason for insertion: Acute Retention
03/15/25 14:43
Ketorolac [Toradol] 15 mg IV NOW STA
03/15/25 16:30
Add On- LAB Urgent
Tests Added?: serum hcg
03/15/25 17:02
Morphine Sulfate 4 mg .ROUTE .STK-MED ONE
03/15/25 17:04
Morphine Sulfate 4 mg IV NOW STA
Abnormal Lab Results
03/15/25
11:04
Monocytes % 10.6 H %
(1.7-9.3)
Alkaline Phosphatase 35 L U/L
(38-126)
03/15/25 11:04
03/15/25 11:04
Vital Signs
Initial and Last Documented VS:
Initial Vital Signs
Temp Pulse Resp BP Pulse Ox
97.8 F 102 16 143/96 100
03/15/25 10:08 03/15/25 10:08 03/15/25 10:08 03/15/25 10:08 03/15/25 10:08
Last Documented Vital Signs
Temp Pulse Resp BP Pulse Ox
97.8 F 82 16 130/82 100
03/15/25 10:08 03/15/25 17:07 03/15/25 17:07 03/15/25 17:07 03/15/25 17:07
<Suman Montana, DO - Last Filed: 03/15/25 12:29>
Orders/Labs/Results
Orders:
Orders
03/15/25 10:35
Bladder Scan- Treatment ONCE
IV Insert/Care/Rem.- Treatment PRN
03/15/25 10:56
UA Reflex to Culture [Urinalysis Reflex To Culture] Urgent
Date Specimen was Collected: 03/15/25
Time Specimen was Collected: 10:55
03/15/25 11:00
IV Insert/Care/Rem.- Treatment PRN
0.9% Sodium Chloride 1000 ml [Nss] 1,000 ml IV BOLUS
HYDROmorphone [Dilaudid] 0.5 mg IV NOW STA
Morphine Sulfate 4 mg IV NOW STA
US Renal With Bladder Urgent
Comment:
Reason For Exam: lower abd pain , urinary retention
03/15/25 11:04
Complete Blood Count/With Diff Urgent
Comprehensive Metabolic Panel Urgent
HCG, Serum Qualitative Screen Urgent
Comment: ADD ON
Lipase Urgent
03/15/25 14:06
CT Abd/pel Without Iv Or Oral Urgent
Comment:
Reason For Exam: urinary retention
Wagner Placement- Treatment ONCE
Reason for insertion: Acute Retention
03/15/25 14:43
Ketorolac [Toradol] 15 mg IV NOW STA
03/15/25 16:30
Add On- LAB Urgent
Tests Added?: serum hcg
03/15/25 17:02
Morphine Sulfate 4 mg .ROUTE .STK-MED ONE
03/15/25 17:04
Morphine Sulfate 4 mg IV NOW STA
Abnormal Lab Results
03/15/25
11:04
Monocytes % 10.6 H %
(1.7-9.3)
Alkaline Phosphatase 35 L U/L
(38-126)
03/15/25 11:04
03/15/25 11:04
Vital Signs
Initial and Last Documented VS:
Initial Vital Signs
Temp Pulse Resp BP Pulse Ox
97.8 F 102 16 143/96 100
03/15/25 10:08 03/15/25 10:08 03/15/25 10:08 03/15/25 10:08 03/15/25 10:08
Last Documented Vital Signs
Temp Pulse Resp BP Pulse Ox
97.8 F 82 16 130/82 100
03/15/25 10:08 03/15/25 17:07 03/15/25 17:07 03/15/25 17:07 03/15/25 17:07
<Jenna Hendrickson PA-C - Last Filed: 03/16/25 02:59>
Orders/Labs/Results
Orders:
Orders
03/15/25 10:35
Bladder Scan- Treatment ONCE
IV Insert/Care/Rem.- Treatment PRN
03/15/25 10:56
UA Reflex to Culture [Urinalysis Reflex To Culture] Urgent
Date Specimen was Collected: 03/15/25
Time Specimen was Collected: 10:55
03/15/25 11:00
IV Insert/Care/Rem.- Treatment PRN
0.9% Sodium Chloride 1000 ml [Nss] 1,000 ml IV BOLUS
HYDROmorphone [Dilaudid] 0.5 mg IV NOW STA
Morphine Sulfate 4 mg IV NOW STA
US Renal With Bladder Urgent
Comment:
Reason For Exam: lower abd pain , urinary retention
03/15/25 11:04
Complete Blood Count/With Diff Urgent
Comprehensive Metabolic Panel Urgent
HCG, Serum Qualitative Screen Urgent
Comment: ADD ON
Lipase Urgent
03/15/25 14:06
CT Abd/pel Without Iv Or Oral Urgent
Comment:
Reason For Exam: urinary retention
Wagner Placement- Treatment ONCE
Reason for insertion: Acute Retention
03/15/25 14:43
Ketorolac [Toradol] 15 mg IV NOW STA
03/15/25 16:30
Add On- LAB Urgent
Tests Added?: serum hcg
03/15/25 17:02
Morphine Sulfate 4 mg .ROUTE .STK-MED ONE
03/15/25 17:04
Morphine Sulfate 4 mg IV NOW STA
Abnormal Lab Results
03/15/25
11:04
Monocytes % 10.6 H %
(1.7-9.3)
Alkaline Phosphatase 35 L U/L
(38-126)
03/15/25 11:04
03/15/25 11:04
Vital Signs
Initial and Last Documented VS:
Initial Vital Signs
Temp Pulse Resp BP Pulse Ox
97.8 F 102 16 143/96 100
03/15/25 10:08 03/15/25 10:08 03/15/25 10:08 03/15/25 10:08 03/15/25 10:08
Last Documented Vital Signs
Temp Pulse Resp BP Pulse Ox
97.8 F 82 16 130/82 100
03/15/25 10:08 03/15/25 17:07 03/15/25 17:07 03/15/25 17:07 03/15/25 17:07
<MAE Sinclair - Last Filed: 03/16/25 07:04>
MDM/Problems Addressed
Differential Diagnosis Includes:
not limited to: urine infection, urine retention
MDM/Problems Addressed:
As documented patient is a 39-year-old female with significant past medical history including colon resection ileostomy with reversal previous history of urinary retention, endometriosis presents to the ER for lower abdominal discomfort and
difficulty urinating. She was found to be retaining urine here in the ER and straight cath was initially done. urine is negative for infection labs unremarkable including normal white count normal renal function. She is afebrile. Renal bladder
ultrasound negative. Patient denies any fever or chills she is afebrile with a normal white count stable hemoglobin, normal chemistries and negative urinalysis
Case reviewed with patient's urogynecologist Dr. Reynolds. Patient is still retaining and has a postvoid bladder residual of 280 cc Wagner is recommended will plan to discharge with Wagner with outpatient follow up.
<Jenna Hendrickson PA-C - Last Filed: 03/16/25 02:59>
*Critical Care Note
Total Time (30-74mins, 75-104mins- exclusive of procedures): Not Applicable
<Jenna Hendrickson PA-C - Last Filed: 03/16/25 02:59>
Update Note
Update Note:
Update: Received patient in signout pending CT report. CT without evidence of obstructing stones. Incidental pulmonary nodule noted which was discussed with patient and importance of further imaging outpatient. Patient remains well appearing, in no
apparent distress. No acute findings on CT. Will discharge home wagner in place and urogyn f/u. Return precautions discussed. All questions answered.
ED Attending Note
<MAE Sinclair - Last Filed: 03/16/25 07:04>
-
Portions of this chart may have been created with voice recognition software.� Occasional wrong word or��sound alike� substitutions may have occurred due to the inherent limitations of voice recognition software.
<Suman Montana DO - Last Filed: 03/15/25 12:29>
ED Attending Note
Patient seen and examined by attending physician: Yes
I performed the substantive portion of visit, reviewed & personally made and approve the management plan that is documented in note by myself or ROMAN.: Yes
ED Attending Note:
I evaluated the patient at bedside. She requested analgesia. Bladder scan upon arrival showed greater than 500 mL of urine. She was catheterized and drained about 500 mL. Ultrasound imaging was obtained afterward and she had then was found to
have 280 mL in her bladder. White count and chemistries unremarkable, no evidence of UTI. She is known to urogynecologist at [place]
Discharge Plan
Departure
Patient Disposition: Home (Routine Discharge)
Date of Disposition: 03/15/25
Time of Disposition: 18:51
Patient with high blood pressure during this ER visit?: Yes
Condition: Fair
Covid-19: Not Applicable
Discharge Problem:
Acute urinary retention
Instructions: Urinary retention - Discharge instructions, BLOOD PRESSURE
Prescriptions:
No Action
trazodone 50 MG tablet
100 mg PO HS
sertraline 100 MG tablet
200 mg PO HS
acetaminophen 325 MG tablet
650 mg PO Q4HPRN PRN (Reason: mild pain) 0RF
clonazepam 0.5 MG tablet
0.5 mg PO HS
plecanatide [Trulance] 3 MG tablet
3 mg PO DAILYPRN PRN (Reason: constipation)
Patient Comments:
takes every other day with dulcolax for bowel regimen
docusate sodium 100 MG capsule
200 mg PO HS
baclofen 10 MG tablet
10 mg PO TID PRN (Reason: spasm)
bupropion HCl 300 MG tablet extended release 24 hr
300 mg PO DAILY
oxycodone 5 MG tablet
5 mg PO Q4HPRN PRN (Reason: moderate pain) Qty: 15 0RF
ciprofloxacin HCl [Cipro] 500 mg tablet
500 mg PO BID Qty: 14 0RF
phenazopyridine [Pyridium] 200 mg tablet
200 mg PO TID PRN (Reason: pain) Qty: 10 0RF
gabapentin 100 mg capsule
100 mg PO TID PRN (Reason: pain) Qty: 14 0RF
pantoprazole 40 MG tablet,delayed release (DR/EC)
40 mg PO DAILY
multivitamin 1 EACH tablet
1 ea PO DAILY
Referrals:
Phi Reynolds MD [Active] -
Debra Leonard MD [Family Provider] -
Activity Restrictions/Additional Instructions:
As discussed please follow-up with your urologist. Leave Wagner in place. Your urinalysis was negative for infection.
call tomorrow to make an appointment as soon as possible. Your labs were unremarkable. Return to the ER if any worsening of symptoms include increasing pain fever chills.
- As discussed�your CT scan did show an incidental finding in your left lung. I have provided you a copy of your CT report. Please follow-up with your primary care provider as you will need further imaging, likely CT of your chest to better
characterize this.
Interventions
Interventions:
*Risk Screen - Suicide Last Done: 03/15/25 10:03
*General Assessment Last Done: 03/15/25 10:53
*Neglect/Abuse Screening Last Done: 03/15/25 10:53
*ED- Fall Risk Assessment Last Done: 03/15/25 10:53
*ED COVID-19 Vaccine History Last Done: 03/15/25 10:53
*Nursing Disposition Last Done: 03/15/25 19:14
[facility] Assessment Last Done: 03/15/25 11:20
Discharge Date and Time
Discharge Date/Time: 03/15/25 19:14
Print Language: [place]
--- NOTE | 2025-03-15 10:52 | EDRN ---
Dr. Montana in room w/pt at this time.
[2025-03-15 11:06] LABS: Urine Albumin Negative (Neg - Trace); Urine Bilirubin Negative (Negative); Urine Character Clear (Clear); Urine Color Yellow; Urine Glucose Negative (Negative); Urine Ketone Negative (Negative); Urine Leukocyte Negative (Negative); Urine Nitrite Negative (Negative); Urine Occult Blood Negative (Negative); Urine Urobilinogen Negative (Neg - 1+)
[2025-03-15 11:13] LABS: % Basophils 0.8 % (0-2); % Eosinophils 1.2 % (0-6); % Immature Granulocytes 0.4 % (0-0.5); % Monocytes 10.6 % (1.7-9.3); Absolute Eosinophils 0.1 10^3/uL (0-0.7); Absolute Lymphocytes 1.2 10^3/uL (1.2-3.4); Absolute Monocytes 0.5 10^3/uL (0.1-0.6); Absolute Neutrophils 3.2 10^3/uL (1.4-6.5); Hematocrit 41.7 % (37.0-47.0); Hemoglobin 13.9 g/dL (12.0-16.0); Mean Corp Hgb Conc. 33.3 g/dL (33.0-37.0); Mean Corpuscular Hgb 28.5 pg (27.0-31.0); Mean Corpuscular Volume 85.5 fL (81.0-99.0); Nucleated Red Blood Cells % 0 %; Platelet Count 280 10^3/uL (130-400); Red Blood Cell Count 4.88 10^6/uL (4.20-5.40); Red Cell Dist. Width 13.4 % (11.5-14.5)
[2025-03-15] MEDS: NSS 1000 IV (11:20)
[2025-03-15] MEDS: MORPHINE SULFATE 4 MG IV ×2 (11:20→17:05)
[2025-03-15 11:25] VITALS: BP 124/68
[2025-03-15 11:35] LABS: ALT (SGPT) 17 U/L (0-35); AST (SGOT) 24 U/L (14-36); Albumin 4.3 g/dl (3.5-5.0); Alkaline Phosphatase 35 U/L (38-126); Blood Urea Nitrogen 9 mg/dl (7-17); Calcium 9.7 mg/dl (8.4-10.2); Carbon Dioxide 25 mmol/L (22-30); Chloride 106 mmol/L (98-107); Estimated Creatinine Clearance 87 ml/min; Glucose 92 mg/dl (70-99); Lipase 67 U/L (23-300); Potassium 4.7 mmol/L (3.5-5.1); Sodium 139 mmol/L (135-145); Total Bilirubin 0.4 mg/dl (0.2-1.3); Total Protein 7.5 g/dl (6.3-8.2); eGFR > 60.00
[2025-03-15 12:34] VITALS: BP 120/85
--- NOTE | 2025-03-15 13:26 | EDRN ---
Pt states pain is increasing. Pt attempted to void feeling lower abd pressure and only voided 50 mL. Dyana Barr PHOTOGRAMMETRIC ENGINEER was TT'd.
--- NOTE | 2025-03-15 13:27 | EDRN ---
Dyana Barr ROVING DEPARTMENT END FINDER in room w /pt at this time.
--- NOTE | 2025-03-15 13:28 | EDRN ---
Dyana Barr REGULATOR OPERATOR states pt needs urinary catheter needs to be placed for urinary retention.
[2025-03-15] MEDS: TORADOL 15 MG IV (14:51)
[2025-03-15 14:54] VITALS: BP 127/79
--- NOTE | 2025-03-15 16:44 | EDRN ---
Dyana Barr NP had told me that [facility] was taking over, this RN sent TT to Yuliana MORE who forwarded it to Yuliana MORE.
--- NOTE | 2025-03-15 16:48 | EDRN ---
Yuliana MORE responded she will be over to see pt.
[2025-03-15 17:07] VITALS: BP 130/82
[2025-03-15 17:29] LABS: HCG, Serum Qualitative Screen Negative
--- NOTE | 2025-03-15 18:45 | EDRN ---
CT resulted w/ Joanna. Emeka MORE informed.
== END 2025-03-15 19:14 | disposition home or self-care (01) ==
LOC: EMR 09:52
PROVIDERS: Nurse Practitioner; EMERGENCY PHYSICIAN Emergency Medicine; FAMILY PHYSICIAN Physical Medicine & Rehabilitation
DX: R33.9 Retention of urine, unspecified (principal); R10.9 Unspecified abdominal pain; N80.9 Endometriosis, unspecified; K31.84 Gastroparesis; Z93.2 Ileostomy status; R00.0 Tachycardia, unspecified; K21.9 Gastro-esophageal reflux disease without esophagitis; F41.8 Other specified anxiety disorders; Z87.440 Personal history of urinary (tract) infections; Z90.49 Acquired absence of other specified parts of digestive tract; Z93.3 Colostomy status
CPT/HCPCS: 99284; 96374; 96375; 96376; 96361; 74176; 76770; 80053; 81003; 83690; 84703; 85025

== ENCOUNTER 2025-06-21 06:27 | Day surgery (SDC) | payer BC, SELFPAY | END 2025-06-21 12:20 | disposition home or self-care (01) | LOC: GI 06:27 | PROVIDERS: ATTENDING PHYSICIAN Internal Medicine | DX: K31.7 Polyp of stomach and duodenum (principal); K29.70 Gastritis, unspecified, without bleeding; K31.89 Other diseases of stomach and duodenum | CPT/HCPCS: 43239; 43236; 88305; 88342 ==

== ENCOUNTER 2025-09-22 17:20 | Emergency (ER) | payer BC, SELFPAY ==
[2025-09-22 17:20] VITALS: BMI 26.0
[2025-09-22 17:21] VITALS: BP 138/91
[2025-09-22 17:46] LABS: Hematocrit 38.6 % (37.0-47.0); Hemoglobin 13.1 g/dL (12.0-16.0); Mean Corp Hgb Conc. 33.9 g/dL (33.0-37.0); Mean Corpuscular Volume 82.7 fL (81.0-99.0); Nucleated Red Blood Cells % 0 %; Platelet Count 314 10^3/uL (130-400); Red Cell Dist. Width 13.2 % (11.5-14.5)
[2025-09-22 17:54] LABS: Urine Character Clear (Clear)
[2025-09-22 18:07] LABS: HCG, Serum Qualitative Screen Negative
[2025-09-22 18:10] LABS: ALT (SGPT) 21 U/L (0-35); AST (SGOT) 23 U/L (14-36); Albumin 4.6 g/dl (3.5-5.0); Alkaline Phosphatase 40 U/L (38-126); Blood Urea Nitrogen 11 mg/dl (7-17); Calcium 9.5 mg/dl (8.4-10.2); Carbon Dioxide 27 mmol/L (22-30); Chloride 102 mmol/L (98-107); Glucose 90 mg/dl (70-99); Lipase 55 U/L (23-300); Potassium 4.3 mmol/L (3.5-5.1); Sodium 134 mmol/L (135-145); Total Protein 7.9 g/dl (6.3-8.2); eGFR > 60.00
[2025-09-22 18:19] LABS: Urine Squamous Cell >30 /LPF (Few); Urine White Cell 0-2 /HPF (0-5)
[2025-09-22 19:10] VITALS: BP 136/75
[2025-09-22 19:11] VITALS: BP 136/75
[2025-09-22] MEDS: ZOFRAN 4 MG IV (19:45)
[2025-09-22] MEDS: NSS 1000 IV (19:45)
[2025-09-22] MEDS: DILAUDID 0.5 MG IV (20:24)
[2025-09-22 22:15] VITALS: BP 124/78
--- NOTE | 2025-09-22 22:38 | ED.GENMED ---
History of Present Illness
General
Chief Complaint: Abdominal Symptoms
Source: patient
Exam Limitations: none
Time Seen by Provider: 09/22/25 19:20
Nursing documentation reviewed up to this point in time: agreed with
History of Present Illness
History of Present Illness:
Patient to the emergency department for evaluation of abdominal pain. She states her symptoms started approximately 10 days ago. She was evaluated by PCP last week. Urinalysis was obtained and she received the results on Saturday. She states that
culture was positive for E. coli. She was started on Keflex on Saturday. She does not notice any improvement in her symptoms. She denies fever or chills. Brought to ED by spouse for evaluation.
Past History
Past History
ED Past Medical History: Arrthythmia (tachycardia), GERD, Psychiatric (Anxiety, Depression) and Other (Endometriosis, rectal prolapse, rectocele, Gastroparesis, UTI, )
ED Past Surgical History: Appendectomy, Bowel resection (Colon resection for rectal prolapse June 2021, Colectomy) and Other (Laparoscopy, Colostomy to Ileostomy with reversal, )
Social History
Tobacco: Non-smoker
Alcohol: Occasional
Drug: None
Personal:
Living: with family
Employment: Employed (Patient is a professor at [employer])
Review of Systems
Review of Systems
Allergies reviewed?: Yes
All Other Systems: ROS reviewed and negative except as documented in HPI and ROS
Constitutional: Reports no symptoms
EENT: Reports no symptoms
Respiratory: Reports no symptoms
Cardiac: Reports no symptoms
ABD/GI: Reports abdominal pain (Diffuse)
: Reports no symptoms
Musculoskeletal: Reports no symptoms
Skin: Reports no symptoms
Neurological: Reports no symptoms
Psychiatric: Reports no symptoms
Phy Exam
General Physical Exam
General Presentation: moderate distress
General age: appears stated age
General Skin: warm and dry
General Habitus: normal
General Mental: alert
Cardiovascular Exam
Cardiovascular Exam: regular rate/rhythm
Gastrointestinal Exam
Gastrointestinal Exam: normal bowel sounds, soft, no organomegaly, no pulsatile mass, non distended and no cva tenderness
Palpation: generalized: Moderate tenderness
Musculoskeletal Exam
Musculoskeletal Exam: full ROM and neuro vasc intact
Skin Exam
Skin Exam: normal color, warm/dry and no rash
Psychiatric Exam
Psychiatric Exam: normal mood/affect
Course
Orders/Labs/Results
Orders:
Orders
09/22/25 17:28
Test Result ONCE
09/22/25 17:32
Complete Blood Count/With Diff Urgent
Comprehensive Metabolic Panel Urgent
HCG, Serum Qualitative Screen Urgent
Comment: Notify provider if positive test present
Lipase Urgent
09/22/25 17:35
Urinalysis Reflex To Culture Urgent
Date Specimen was Collected: 09/22/25
Time Specimen was Collected: 17:28
Urine Microscopic Reflex Cult Urgent
09/22/25 19:30
Ondansetron Injectable [Zofran] 4 mg IV NOW STA
09/22/25 19:33
CT Abd/pelvis W Iv Cont Urgent
Comment:
Reason For Exam: diffuse abd. pain, vomiting
0.9% Sodium Chloride 1000 ml [Nss] 1,000 ml IV BOLUS
09/22/25 20:21
HYDROmorphone [Dilaudid] 0.5 mg IV NOW STA
Abnormal Lab Results
09/22/25 09/22/25
17:32 17:35
Absolute Monos (auto) 0.7 H 10^3/uL
(0.1-0.6)
Monocytes % 9.7 H %
(1.7-9.3)
Sodium 134 L mmol/L
(135-145)
Urine Ketones 1+ A
(Negative)
Ur Occult Blood Reflex 1+ A
(Negative)
Urine RBC 3-6 A /HPF
(0-2)
Urine Bacteria (Reflex) Few A
(Negative)
Urine Albumin (Reflex) 1+ A
(Neg - Trace)
09/22/25 17:32
09/22/25 17:32
Vital Signs
Initial and Last Documented VS:
Initial Vital Signs
Temp Pulse Resp BP Pulse Ox
98.5 F 119 16 138/91 100
09/22/25 17:21 09/22/25 17:21 09/22/25 17:21 09/22/25 17:21 09/22/25 17:21
Last Documented Vital Signs
Temp Pulse Resp BP Pulse Ox
98.4 F 84 16 124/78 99
09/22/25 19:11 09/22/25 22:15 09/22/25 22:15 09/22/25 22:15 09/22/25 22:15
*Radiology
Radiology exam reviewed: radiology read reviewed
*Pulse Oximetry
SaO2: 99
Oxygen Mode of Delivery: Room air
Patient hypoxic: no
*Critical Care Note
Total Time (30-74mins, 75-104mins- exclusive of procedures): Not Applicable
Update Note
Update Note:
Patient to the emergency department for evaluation of diffuse abdominal pain. Symptoms started approximately 10 days ago. She was evaluated by PCP last week. She states UA culture report of E. coli infection. She was notified Saturday of this.
She was started on Keflex twice daily but does not report any improvement in her abdominal symptoms. Vital signs are stable she remains afebrile. Labs reviewed WBC of 7.0 hemoglobin hematocrit both normal. Sodium of 134, all other results are
normal. UA +1 occult blood 3-6 RBC 0-2 WBCs with few bacteria. No evidence of infection at this point however she has been on Keflex for [address] of abdomen and pelvis was completed. No concerning findings in the abdomen or pelvis.
Results were discussed with her. Plan will be to discharge home and close follow-up with PCP. She was instructed to finish out her antibiotic as prescribed. She has a 6 mm left lower lobe nodule. This is stable from her CT earlier this year.
She is aware of this nodule but has not addressed this with her primary at this time. Will give her the number for pulmonology request that she follow-up for further evaluation and continued monitoring of this nodule. She was given instructions on
signs and symptoms to return to the emergency department and she is agreeable to this plan.
ED Attending Note
-
Portions of this chart may have been created with voice recognition software.� Occasional wrong word or��sound alike� substitutions may have occurred due to the inherent limitations of voice recognition software.
Discharge Plan
Departure
Patient Disposition: Home (Routine Discharge)
Date of Disposition: 09/22/25
Time of Disposition: 22:08
Patient with high blood pressure during this ER visit?: No
Condition: Good
Covid-19: Not Applicable
Discharge Problem:
Abdominal pain
Instructions: Abdominal Pain
Prescriptions:
No Action
trazodone 50 MG tablet
25 mg PO HS
sertraline 100 MG tablet
250 mg PO HS
clonazepam 0.5 MG tablet
0.5 mg PO HS
baclofen 10 MG tablet
10 mg PO HSPRN PRN (Reason: spasm)
trazodone 50 mg Tablet
25 mg PO HSPRN PRN (Reason: SLEEP)
Theragen Tablet
1 tab PO DAILY
tramadol 50 mg Tablet
50 mg PO DAILYPRN PRN (Reason: MODERATE PAIN)
bupropion HCl 100 mg Tablet
150 mg PO BID@0800,1900
bupropion HCl [Wellbutrin] 100 mg Tablet
100 mg PO DAILY@1200
tamsulosin [Flomax] 0.4 mg Capsule
0.4 mg PO DAILYPRN PRN (Reason: SELF CATH)
cephalexin 500 mg Capsule
1,000 mg PO BID
Rx Instructions:
FOR 7 DAYS STARTING 09/20/25
norethindrone acetate 5 mg Tablet
5 mg PO DAILY
Referrals:
Efra Mares MD [Non-Admitting Privileges, Surgical] - Next open appointment
Referral Note: Follow up with pulmonology for further evaluation of your pulmonary nodule.
Uriel Leonard MD [Family Provider, Internal Medicine] - Tomorrow
Activity Restrictions/Additional Instructions:
Return to the emergency department for any changes in/worsening of your symptoms.
Interventions
Interventions:
*Risk Screen - Suicide Last Done: 09/22/25 17:21
*General Assessment Last Done: 09/22/25 17:21
*Neglect/Abuse Screening Last Done: 09/22/25 17:21
*ED- Fall Risk Assessment Last Done: 09/22/25 22:15
*Nursing Disposition Last Done: 09/22/25 22:15
TE-Bzjaxb-Khgdkpviob Assessment Last Done: 09/22/25 19:13
Discharge Date and Time
Discharge Date/Time: 09/22/25 22:15
Print Language: COLOMBIAN
== END 2025-09-22 22:15 | disposition home or self-care (01) ==
LOC: EMR 17:20
PROVIDERS: EMERGENCY PHYSICIAN Student in an Organized Health Care Education/Training Program; FAMILY PHYSICIAN Internal Medicine
DX: R10.84 Generalized abdominal pain (principal); Z90.49 Acquired absence of other specified parts of digestive tract; Z87.440 Personal history of urinary (tract) infections
CPT/HCPCS: 99284; 96374; 96375; 96361; 74177; 80053; 81003; 81015; 83690; 84703; 85025; Q9967